=== PATIENT | female | born 1995 | race African-American/Black ===

== ENCOUNTER 2017-08-13 15:51 | Inpatient (IN) | payer OTHER ==
[2017-08-13 16:35] VITALS: BMI 36.0
[2017-08-13] MEDS ORDERED: Magnesium Sulfate 20 gm/500 ml 20 GM/500 ML BAG ONE (16:52)
[2017-08-13] MEDS ORDERED: Zolpidem Tartrate 5 MG TAB PO PRN (16:53)
[2017-08-13] MEDS ORDERED: Ondansetron HCl/PF 4 MG/2 ML Vial IVP PRN ×2 (16:53→18:58)
[2017-08-13] MEDS ORDERED: Promethazine HCl 25 MG/ML VIAL IM PRN ×2 (16:53→18:58)
[2017-08-13] MEDS ORDERED: Calcium Gluc 4.6 MEQ/10 ML (100 MG/ML) SLOW IVP PRN (16:53)
[2017-08-13] MEDS ORDERED: Magnesium Sulfate 20 GM/WATER 500 ML BAG IVPB SCH (17:00)
[2017-08-13] MEDS: Lactated Ringer's 1,000 ML IV SCH (17:01)
--- NOTE | 2017-08-13 17:04 | PDOC.LDHP ---
Labor and Delivery H&P Chief complaint: contractions HPI: 22 yo BF EDC= 08/18/2017 presents c/o UCs since this AM. Denies RAMIREZ, blurry vison, or RUQ pain Current gestational age (weeks): 39 Due date: 08/18/17 Dating criteria: last menstrual period Grav: 1 Para: 0 OB History Details: PNC with Dr. Mcfarlane. Started on 'bp med" 3 weeks ago and reports "all BPs normal " since then. Current complications: none Abnormal US findings: No Past Medical History: None Current medications: pre- vitamins, other Previous surgical history: none Allergies/Adverse Reactions: Allergies Allergy/AdvReac Type Severity Reaction Status Date / Time No Known Allergies Allergy Unverified 08/13/17 16:25 Social history: none - Physical Exam Abnormal vital signs: BPs in Triage 160's/90's General: breathing through contractions Heart: RRR Lungs: CTAB Abdomen: gravid Extremeties: pitting edema FHT: category 1 [place] contractions every: q 3-4 mins - Vaginal Exam Effacement: 100% - OB Labs Blood type: O RH: positive Antibody Screen: negative HIV: negative RPR: negative HEPSAg: negative 1 hour GCT: negative GBS: negative Rubella: immune - Assessment #9 week IUP in early labor, elevated BPs and edema c/w PIH - Plan Plan: admit to L&D, magnesium for seizure prophylaxis -: Admit to L&D. Start MgSo4 for PIH. Will watch progress and Bps carefully.
[2017-08-13 17:14] LABS: Bilirubin Negative (Negative); Blood, Urine Trace (Negative); Clarity CLOUDY (Clear); Glucose, Urine (Dipstick) Negative (Negative); Leukocyte Small (Negative); Nitrite Negative (Negative); Protein, Urine (Dipstick) Trace mg/dL (Neg-Trace); Specific Gravity, Urine 1.015 (1.002-1.036); pH, Urine 6.5 (5.0-9.0)
[2017-08-13 17:17] LABS: Bacteria/HPF Rare-Few HPF (None Seen); Hyaline Casts/LPF 7-10 HYALINE CAST LPF (0-3 Hyaline); Pathc Cast-AUWi Flag 2.03 (0-2.49)
[2017-08-13] MEDS: Magnesium Sulfate 20 gm/500 ml 20 GM/500 ML BAG IVPB SCH (17:35)
[2017-08-13 17:41] LABS: Hemoglobin 13.3 g/dL (12.0-16.0); Mean Corpuscular HGB CONC 32.8 g/dL (32.0-36.0); Mean Corpuscular Hemoglobin 26.5 pg (27.0-31.0); Mean Corpuscular Volume 80.9 fl (81.0-99.0); Mean Platelet Volume 8.7 fL (7.4-10.4); Platelet Count 95 thou/uL (130-400); RBC Distribution Width 18.5 % (11.5-14.5); Red Blood Cell (RBC) Count 5.01 mill/uL (4.20-5.40); White Blood Cell (WBC) Count 7.6 thou/uL (4.8-10.8)
[2017-08-13 17:43] LABS: Sodium 138 mmol/L (136-145)
[2017-08-13 17:44] LABS: ALT (SGPT) 17 U/L (8-55); AST (SGOT) 21 U/L (5-34); Albumin 3.7 g/dL (3.5-5.0); Alkaline Phosphatase 176 U/L (40-150); Anion Gap 13 mmol/L (10-20); BUN (Urea Nitrogen) 4 mg/dL (7.0-18.7); Bilirubin, Total 0.6 mg/dL (0.2-1.2); Calc. Creatinine Clearance 225 mL/min (70-130); Carbon Dioxide 21 mmol/L (22-29); Chloride 108 mmol/L (98-107); Estimated GFR-MDRD Greater than 90; Globulin 2.9 g/dL (2.4-3.5); Glucose 79 mg/dL (70-105); Potassium 3.8 mmol/L (3.5-5.1); Protein, Total 6.6 g/dL (6.0-8.3)
[2017-08-13 18:00] LABS: Syphilis Antibody Nonreactive (Nonreactive); Syphilis Antibody Index 0.03 S/CO (<1.00 Non-Reactive)
[2017-08-13] MEDS ORDERED: Bupivacaine 0.5% 20 ML, fentaNYL Citrate/PF 400 MCG in Sodium Chloride 0.9% 72 ML EPIDURAL SCH (18:00)
[2017-08-13] MEDS ORDERED: DISCONTINUE ALL PREVIOUS NARCOTICS FS SCH (18:00)
[2017-08-13] MEDS ORDERED: Fentanyl 100 MCG/2 ML VIAL ONE (18:05)
--- NOTE | 2017-08-13 18:05 | PDOC.LDPN ---
Labor & Delivery Progress Note - Subjective Subjective: painful contractions - Objective Abnormal vital signs: Bps now 140's/80's General: breathing through contractions Uterine fundus: palpable contractions SVE: deferred [place] contractions every: q 3-5 Other exam findings: BS USG confirms vtx -: Labs return with 90K plts, LFTs are normal. Mg load given, now at 2 gms/hr. Wants epidural now. Once placed, will proceed with AROM.
[2017-08-13 18:41] LABS: HBSAg Index 0.53 S/CO (0-0.99); Hep B Surf Ag Non-Reactive S/CO (NonReactive)
--- NOTE | 2017-08-13 18:57 | PDOC.EVN ---
Event Note - Event Note Event Note: Epidural has been placed. Pt. comfortable. BP 120/60. SVE per RN is 5/c/o vtx. Fhts are reassuring. SROM clear with exam. IUPC was placed. GBS is negative. Plan: Cont. MgSo4 Watch progress Augment if needed
[2017-08-13] MEDS ORDERED: Eucerin (Mineral Oil/Petrolatum,White) 30 gm Jar TOP PRN (18:58)
[2017-08-13] MEDS ORDERED: Lactated Ringer's 500 ML IV PRN (18:58)
[2017-08-13] MEDS ORDERED: Naloxone HCl 0.4 mg/ml Vial IVP PRN ×2 (18:58)
[2017-08-13] MEDS ORDERED: Acetaminophen 325 MG TAB PO PRN (18:58)
[2017-08-13] MEDS ORDERED: ePHEDrine/0.9% NaCl/PF SYRINGE 50 mg/10 ml SLOW IVP PRN (18:58)
[2017-08-13] MEDS ORDERED: diphenhydrAMINE 50 MG/ML VIAL IVP PRN (18:58)
[2017-08-13] MEDS ORDERED: Fentanyl 4mcg/Marcaine 0.1% Cassette 100 ML EPIDURAL SCH ×2 (19:00)
[2017-08-13] MEDS ORDERED: Communication Order-Pharmacy FS SCH (19:00)
[2017-08-13] MEDS ORDERED: LR 500 ML/Oxytocin 10 units 500 ML IV SCH (21:45)
[2017-08-13] MEDS ORDERED: NS w/ Oxytocin 10 units 500 ML IV SCH (21:45)
[2017-08-14] MEDS: Lactated Ringer's 1,000 ML IV SCH (00:24)
[2017-08-14] MEDS: Magnesium Sulfate 20 gm/500 ml 20 GM/500 ML BAG IVPB SCH (01:33)
[2017-08-14] MEDS ORDERED: NS / Oxytocin 40 units/1000ml 1,000 ML ONE (01:53)
[2017-08-14] MEDS ORDERED: NS / Oxytocin 40 units/1000ml 0 ML ONE (01:53)
[2017-08-14] MEDS ORDERED: Lidocaine 1% (PF) 30 ML VIAL ONE (01:54)
[2017-08-14] MEDS ORDERED: Milk Of Magnesia 30 ML UDCUP PO PRN ×2 (03:36→15:49)
[2017-08-14] MEDS ORDERED: Acetaminophen/Codeine 30-300mg Tablet PO PRN ×2 (03:36)
[2017-08-14] MEDS ORDERED: Lanolin Ointment 7 GM TUBE TOP PRN ×2 (03:36→15:49)
[2017-08-14] MEDS ORDERED: Bisacodyl 10 MG SUPP PR PRN ×2 (03:36→15:49)
[2017-08-14] MEDS ORDERED: Ondansetron HCl/PF 4 MG/2 ML Vial IVP PRN ×2 (03:36→15:49)
[2017-08-14] MEDS ORDERED: Calcium Gluconate 4.6 MEQ in Sodium Chloride 0.9% 100 ML IVPB PRN (03:36)
[2017-08-14] MEDS ORDERED: Magnesium Sulfate 20 gm/500 ml 20 GM/500 ML BAG IVPB SCH (03:45)
[2017-08-14] MEDS ORDERED: NS / Oxytocin 40 units/1000ml 1,000 ML IV SCH ×2 (04:00→15:49)
[2017-08-14] MEDS ORDERED: Adacel (T-DAP) 0.5 ML VIAL IM ONE (04:00)
[2017-08-14 05:45] LABS: ALT (SGPT) 15 U/L (8-55); AST (SGOT) 25 U/L (5-34); Albumin 3.2 g/dL (3.5-5.0); Alkaline Phosphatase 156 U/L (40-150); Anion Gap 12 mmol/L (10-20); BUN (Urea Nitrogen) 5 mg/dL (7.0-18.7); Bilirubin, Total 0.9 mg/dL (0.2-1.2); Calc. Creatinine Clearance 197 mL/min (70-130); Calcium 7.9 mg/dL (7.8-10.44); Carbon Dioxide 20 mmol/L (22-29); Chloride 109 mmol/L (98-107); Estimated GFR-MDRD Greater than 90; Globulin 2.5 g/dL (2.4-3.5); Glucose 102 mg/dL (70-105); Potassium 3.6 mmol/L (3.5-5.1); Protein, Total 5.7 g/dL (6.0-8.3); Sodium 137 mmol/L (136-145)
[2017-08-14 05:47] LABS: Hemoglobin 12.2 g/dL (12.0-16.0); Mean Corpuscular HGB CONC 32.7 g/dL (32.0-36.0); Mean Corpuscular Hemoglobin 26.4 pg (27.0-31.0); Mean Corpuscular Volume 80.8 fl (81.0-99.0); Mean Platelet Volume 11.7 fL (7.4-10.4); Platelet Count 100 thou/uL (130-400); RBC Distribution Width 18.6 % (11.5-14.5); Red Blood Cell (RBC) Count 4.62 mill/uL (4.20-5.40)
[2017-08-14] MEDS ORDERED: Ferrous Sulfate 325 MG TAB PO SCH (08:00)
[2017-08-14] MEDS ORDERED: Prenatal Vitamin 1 TAB PO SCH (09:00)
[2017-08-14] MEDS ORDERED: Docusate Calcium (SURFAK) 240 MG CAP PO SCH (09:00)
--- NOTE | 2017-08-14 10:09 | OP ---
DATE OF ENCOUNTER: 08/14/2017 The patient delivered a male infant by an uncomplicated term spontaneous vaginal delivery on 08/15/19 18 at 0304 hours. Apgars were 8 and 9. Weight is unavailable at the time of dictation. Placenta de livered spontaneously followed by Pitocin infusion. There were no lacerations requiring suture for h emostasis. She had a small first degree laceration. Estimated blood loss [address] Ware is [facility] delivering physician. Mother and baby are stable in the immediate . CBC and CMP are cortney ng drawn now to evaluate the patient's low platelet count at time of admission. The patient will con tinue on magnesium for the next 24 hours for preeclampsia and possible HELLP syndrome.
[2017-08-14] MEDS ORDERED: HYDROcodone/Acetaminophen 5/325 mg Tablet PO PRN (15:49)
[2017-08-14] MEDS ORDERED: diphenhydrAMINE 25 MG CAP PO PRN (15:49)
[2017-08-14] MEDS ORDERED: Preparation H Ointment 28 GM TUBE PR PRN (15:49)
[2017-08-14] MEDS ORDERED: Promethazine HCl 25 MG/ML VIAL IM PRN (15:49)
[2017-08-14] MEDS ORDERED: Zolpidem Tartrate 5 MG TAB PO PRN (15:49)
[2017-08-14] MEDS: Ferrous Sulfate 325 MG TAB PO SCH (17:42)
[2017-08-14] MEDS: Docusate Calcium (SURFAK) 240 MG CAP PO SCH (21:17)
[2017-08-14] MEDS: Ibuprofen 800 MG TAB PO SCH (21:17)
[2017-08-15] MEDS: HYDROcodone/Acetaminophen 5/325 mg Tablet PO PRN ×2 (00:56→12:00)
[2017-08-15] MEDS: Ibuprofen 800 MG TAB PO SCH ×3 (05:14→21:10)
[2017-08-15 06:49] LABS: Hemoglobin 10.9 g/dL (12.0-16.0); Mean Corpuscular HGB CONC 31.8 g/dL (32.0-36.0); Mean Corpuscular Hemoglobin 26.3 pg (27.0-31.0); Mean Corpuscular Volume 82.7 fl (81.0-99.0); Mean Platelet Volume 7.8 fL (7.4-10.4); Platelet Count 99 thou/uL (130-400); RBC Distribution Width 18.4 % (11.5-14.5); Red Blood Cell (RBC) Count 4.17 mill/uL (4.20-5.40); White Blood Cell (WBC) Count 10.9 thou/uL (4.8-10.8)
--- NOTE | 2017-08-15 07:14 | PDOC.PP ---
Post Progress Note Post Day #: 2 PO intake tolerated: yes Flatus: yes Ambulation: yes Vital Signs (12 hours) Temp Pulse Resp BP BP Pulse Ox 08/15/17 05:15 97.5 F L 72 18 98/57 L 08/15/17 00:50 98.5 F 81 20 107/64 08/14/17 20:00 98.7 F 87 20 122/59 L 99 Weight Weight 230 lb - Physical Examination General: NAD Cardiovascular: no m/r/g, RRR Respiratory: clear to auscultation bilaterally, non-labored breathing Abdominal: + bowel sounds, lochia, no distention, appropriately TTP Extremities: negative homans (B) Neurological: no gross focal deficits Psychiatric: A&Ox3, normal affect Result Diagrams: 08/15/17 05:09 08/14/17 05:15 Additional Labs: Post Labs Blood Type O POSITIVE 08/13/17 17:14 Hep Bs Antigen Non-Reactive S/CO (NonReactive) 08/13/17 17:14 (1) Preeclampsia Code(s): O14.90 - UNSPECIFIED PRE-ECLAMPSIA, UNSPECIFIED TRIMESTER Status: Acute Qualifiers: Trimester: third trimester Qualified Code(s): O14.93 - Unspecified pre- eclampsia, third trimester - Assessment/Plan doing well bp normalized. home tomorrow 08/16
[2017-08-15] MEDS: Docusate Calcium (SURFAK) 240 MG CAP PO SCH ×2 (10:08→21:10)
[2017-08-15] MEDS: Prenatal Vitamin 1 TAB PO SCH (10:08)
[2017-08-15] MEDS: Ferrous Sulfate 325 MG TAB PO SCH (10:09)
[2017-08-16] MEDS: Ferrous Sulfate 325 MG TAB PO SCH ×2 (00:37→10:04)
[2017-08-16] MEDS: Ibuprofen 800 MG TAB PO SCH ×2 (05:11→05:13)
--- NOTE | 2017-08-16 07:33 | PDOC.PP ---
Post Progress Note Post Day #: 3 PO intake tolerated: yes Flatus: yes Ambulation: yes Vital Signs (12 hours) Temp Pulse Resp BP Pulse Ox 08/16/17 05:10 98.4 F 77 18 117/75 08/16/17 00:50 98.4 F 80 18 122/65 08/15/17 20:00 98.5 F 82 20 119/66 95 Weight Weight 230 lb - Physical Examination General: NAD Cardiovascular: no m/r/g, RRR Respiratory: clear to auscultation bilaterally Abdominal: + bowel sounds, lochia Extremities: negative homans (B) Skin: no rash Neurological: no gross focal deficits Psychiatric: A&Ox3, normal affect Result Diagrams: 08/15/17 05:09 08/14/17 05:15 Additional Labs: Post Labs Blood Type O POSITIVE 08/13/17 17:14 Hep Bs Antigen Non-Reactive S/CO (NonReactive) 08/13/17 17:14 (1) Preeclampsia Code(s): O14.90 - UNSPECIFIED PRE-ECLAMPSIA, UNSPECIFIED TRIMESTER Status: Acute Qualifiers: Trimester: third trimester Qualified Code(s): O14.93 - Unspecified pre- eclampsia, third trimester - Assessment/Plan dc home. bp normalized
[2017-08-16 08:13] VITALS: BP 119/67; TEMP 98.1
[2017-08-16] MEDS: Prenatal Vitamin 1 TAB PO SCH (10:05)
[2017-08-16] MEDS: Docusate Calcium (SURFAK) 240 MG CAP PO SCH (10:05)
== END 2017-08-16 13:08 | disposition home or self-care (01) | DRG 775 ==
LOC: L&D/OP 15:51 → L&D 17:40 → 3SW 08-14 15:43
PROVIDERS: ADMIT Obstetrics & Gynecology; ATTEND Obstetrics & Gynecology
PROC: 10E0XZZ Delivery of Products of Conception, External Approach (ICD-10-PCS; principal; 2017-08-13)
DX: O14.94 Unspecified pre-eclampsia, complicating childbirth (principal); Z37.0 Single live birth; Z3A.39 39 weeks gestation of pregnancy
CPT/HCPCS: 36415; 51702; 80053; 81001; 83735; 85027; 86780; 86850; 86900; 86901; 87340; 99285; J2001; J3010; J3475; J3490; J7050